=== PATIENT | male | born 1960 | race Hispanic/Latino ===

== ENCOUNTER 2016-08-24 12:18 | Inpatient (IN) | payer MEDICAID ==
[2016-08-24 12:18] VITALS: BMI 29.1
[2016-08-24] MEDS ORDERED: ceFAZolin 1 GM in Sodium Chloride 0.9% 100 ML IVPB ONE (13:31)
[2016-08-24] MEDS ORDERED: Sodium Chloride 0.9% 1,000 ML IV STA (13:31)
--- NOTE | 2016-08-24 13:43 | ED PDOC ---
Lower Extremity Pain/Injury Time Seen by Provider: 08/24/16 12:23 Chief Complaint (Nursing): Lower Extremity Problem/Injury History Per: Patient (states that since yesterday he has been some pain and discomfort on the bottom of this left foot. This morning he noticed redness, swelling on his left leg that has extended proximally) History/Exam Limitations: no limitations Onset/Duration Of Symptoms: Sudden Onset Current Symptoms Are (Timing): Still Present Severity: Moderate Past Medical History Reviewed: Historical Data, Nursing Documentation, Vital Signs Vital Signs: Last Vital Signs Temp 100 F H 08/24/16 12:45 Pulse 112 H 08/24/16 12:45 Resp 18 08/24/16 12:45 BP 125/72 08/24/16 12:45 Pulse Ox 100 08/24/16 12:45 - Surgical History Surgical History: No Surg Hx - Family History Family History: States: Unknown Family Hx - Living Arrangements Living Arrangements: Alone - Immunization History Hx Tetanus Toxoid Vaccination: No Hx Influenza Vaccination: No Hx Pneumococcal Vaccination: No - Home Medications Home Medications: Ambulatory Orders Medication Instructions Recorded No Known Home Med 08/24/16 - Allergies Allergies/Adverse Reactions: Allergies Allergy/AdvReac Type Severity Reaction Status Date / Time No Known Allergies Allergy Verified 06/03/16 15:23 Review of Systems ROS Statement: Except As Marked, All Systems Reviewed And Found Negative Constitutional: Positive for: Fever, Chills Skin: Positive for: Other (redness and swelling of the left calf). Negative for : Jaundice Neurological: Negative for: Weakness Physical Exam - Reviewed Nursing Documentation Reviewed: Yes Vital Signs Reviewed: Yes - Physical Exam Appears: Positive for: Well, Non-toxic, No Acute Distress Head Exam: Positive for: ATRAUMATIC, NORMAL INSPECTION, NORMOCEPHALIC Skin: Positive for: Normal Color, Warm, DRY Eye Exam: Positive for: EOMI, Normal appearance, PERRL ENT: Positive for: Normal ENT Inspection Neck: Positive for: Normal, Painless ROM Cardiovascular/Chest: Positive for: Regular Rate, Rhythm Respiratory: Positive for: CNT, Normal Breath Sounds Gastrointestinal/Abdominal: Positive for: Normal Exam, Bowel Sounds, Soft Back: Positive for: Normal Inspection Extremity: Positive for: Normal ROM, Tenderness (tenderness to touch in the areas of redness), Swelling. Negative for: Calf Tenderness (Sheree's negative), Deformity Neurologic/Psych: Positive for: Alert, Oriented - Laboratory Results Result Diagrams: 08/24/16 13:15 08/24/16 13:15 - ECG O2 Sat by Pulse Oximetry: 100 Medical Decision Making Medical Decision Making: labs reviewed. WBC 14K with left shift. Remains uncomfortable and tachycardic. Agrees to admission. case d/w Dr. Alexander for admission to medical service. Dr. Alexander is covering for Dr. Moreau. Podiatry consult as requested. Disposition - Clinical Impression Clinical Impression: Cellulitis of left lower leg - Patient ED Disposition Is Patient to be Admitted: Yes Doctor Will See Patient In The: Hospital - Disposition Disposition: Transfer of Care Disposition Time: 15:10 Condition: GUARDED - Pt Status Changed To: Hospital Disposition Of: Observation - POA Present On Arrival: None
--- NOTE | 2016-08-24 13:51 | RAD ---
HISTORY: fever COMPARISON: No prior. FINDINGS: LUNGS: Shallow lung volumes. No consolidations seen. PLEURA: No significant pleural effusion identified, no pneumothorax apparent. CARDIOVASCULAR: Probable mild cardiomegaly. OSSEOUS STRUCTURES: Thoracic mild spondylosis VISUALIZED UPPER ABDOMEN: Normal. OTHER FINDINGS: None. IMPRESSION: No consolidation to suggest infiltrate. No pleural effusion
[2016-08-24 13:56] LABS: VENOUS BLOOD GAS PCO2 53 mmHg (40-60); VENOUS BLOOD PH 7.37 (7.32-7.43)
[2016-08-24 14:01] LABS: BASO % 0.3 % (0.0-2.0); HEMATOCRIT 43.1 % (35.0-51.0); LYMPH # 0.4 K/uL (1.0-4.3); LYMPH % 2.8 % (20.0-40.0); MEAN CELL VOLUME 82.7 fl (80.0-94.0); MEAN CORPUSCULAR HEMOGLOBIN 26.9 pg (27.0-31.0); MEAN CORPUSCULAR HGB CONC 32.5 g/dL (33.0-37.0); MEAN PLATELET VOLUME 8.8 fl (7.2-11.7); MONO # 0.7 K/uL (0.0-0.8); MONO % 5.3 % (0.0-10.0); NEUT # 12.6 K/uL (1.8-7.0); NEUT % 91.6 % (50.0-75.0); NRBC % 0.1 % (0.0-0.0); PLATELET COUNT 163 K/uL (130-400); RED CELL DISTRIBUTION WIDTH 13.6 % (11.5-14.5); WHITE BLOOD COUNT 13.7 K/uL (4.8-10.8)
[2016-08-24 14:08] LABS: ALB/GLOB RATIO 1.4 (1.0-2.1); ALKALINE PHOSPHATASE 64 U/L (38-126); ALT/SGPT 46 U/L (21-72); AST/SGOT 27 U/L (17-59); BILIRUBIN,TOTAL 0.8 mg/dl (0.2-1.3); BLOOD UREA NITROGEN 17 mg/dl (9-20); CALCIUM 9.2 mg/dL (8.4-10.2); CARBON DIOXIDE 27 mmol/L (22-30); CHLORIDE 102 mmol/L (98-107); GFR AFRICAN-AMERICAN > 60; GLUCOSE,RANDOM 107 mg/dL (75-110); POTASSIUM 4.1 MMOL/L (3.6-5.0); SODIUM 140 mmol/l (132-148)
[2016-08-24 14:44] LABS: BASOPHIL 1 % (0-2); NEUTROPHIL 86 % (42-75); REACTIVE LYMPHOCYTES 1 % (0-0); TOTAL CELLS COUNTED 100
--- NOTE | 2016-08-24 14:45 | US ---
Left lower extremity ultrasound. Indication: left lower leg swelling Technique: Duplex ultrasound evaluation of the left lower extremity Comparison: None available Findings: There is normal flow, compressibility, and augmentation of the left common femoral, femoral, and popliteal veins. No evidence of thrombus involving the left posterior tibial veins. Left inguinal lymph node measures approximately 1 cm in short axis, nonspecific. Impression: No evidence of deep venous thrombosis in the left lower extremity.
--- NOTE | 2016-08-24 17:54 | CP.PCM.CON ---
History of Present Illness - History of Present Illness History of Present Illness: PODIATRY CONSULT NOTE FOR DR. MARRUFO: This is a 55 yo undomiciled male patient w/ unremarkable pmh who presents to the ED today with chief complaint of pain and redness to his left foot/leg. Pt says that yesterday and today he noticed that the redness to the leg has become wore, admits to fever and chills today. Says he has a history of cellulilits to this leg several times in the past. Says he has a history of athletes foot and has used antifungal creams in the past. Denies seeing any open wounds, denies any recent illness. Denies n,v,sob or cp. Denies any other pedal complaints. Pt says he resides at [facility]. Past Patient History - Infectious Disease Hx of Infectious Diseases: None - Past Social History Smoking Status: Never Smoked - MUSCULOSKELETAL/RHEUMATOLOGICAL Other/Comment: cellulitis - PSYCHIATRIC Hx Substance Use: Yes - SURGICAL HISTORY Hx Surgeries: Yes Hx Herniorrhaphy: Yes Hx Orthopedic Surgery: Yes (knee) - ANESTHESIA Hx Anesthesia: Yes Hx Anesthesia Reactions: No Meds Allergies/Adverse Reactions: Allergies Allergy/AdvReac Type Severity Reaction Status Date / Time No Known Allergies Allergy Verified 08/24/16 20:06 Physical Exam - Constitutional Appears: Non-toxic, No Acute Distress - Extremities Exam Additional comments: LLE focused exam: VASC- DP/PT pulses palpable, TG runs warm to warm with increased calor noted to medial aspect of leg from ankle extending proximally, moderate non-pitting edema noted to posterior-medial leg DERM- blancing ertythema noted to to distal aspect of leg from medial aspect of ankle extending proximally to calf, no fluctuance, no open wounds, no malodor, diffuse scaling noted to plantar aspect of foot NEURO- grossly intact ORTHO-tenderness on palp of medial aspect of leg, pedal muscle strength 5/5 in all directions - Neurological Exam Neurological exam: Alert, CN II-XII Intact, Normal Gait - Psychiatric Exam Psychiatric exam: Normal Affect, Normal Mood Results - Vital Signs Recent Vital Signs: Last Vital Signs Temp 99.0 F 08/24/16 17:30 Pulse 103 H 08/24/16 17:30 Resp 20 08/24/16 17:30 BP 123/73 08/24/16 17:30 Pulse Ox 96 08/24/16 17:30 - Labs Result Diagrams: 08/24/16 13:15 08/24/16 13:15 Assessment & Plan - Assessment and Plan (Free Text) Assessment: 55 yo male patient with 1) cellulitis of left lower extremity, 2) tinea pedis of left foot Plan: Pt S&E in ED Plan discussed with attending Dr. Marrufo Chart labs and vitals reviewed: febrile 100.1, WBC 13.7 w/ left shift, remains tachy Lows ext duplex (left) reviewed: (-) for DVT Cellulitis margins marked Pt to be admitted for obsv under Dr. Alexander service f/u ID recs, c/w IV abx per ID Podiatry will continue to follow while he remains in house
[2016-08-24 20:24] LABS: RBC URINE 5 /hpf (0-3); URINE BACTERIA OCC (<OCC); URINE BILIRUBIN NEGATIVE (NEGATIVE); URINE BLOOD MODERATE (NEGATIVE); URINE COLOR YELLOW (YELLOW); URINE GLUCOSE (UA) NEG (Normal); URINE KETONE NEGATIVE (NEGATIVE); URINE LEUKOCYTE ESTERASE NEG Leu/uL (Negative); URINE PROTEIN 100 mg/dL (NEGATIVE); URINE UROBILINOGEN 0.2-1.0 mg/dL (0.2-1.0); WBC URINE 1 /hpf (0-5)
[2016-08-24] MEDS ORDERED: Piperacillin/Tazobact 3.375 GM in Sodium Chloride 0.9% 100 ML IVPB SCH (21:16)
[2016-08-25] MEDS: Piperacillin/Tazobact 3.375 GM in Sodium Chloride 0.9% 100 ML IVPB SCH ×3 (00:44→16:04)
--- NOTE | 2016-08-25 05:45 | CP.PCM.PN ---
Subjective - Date & Time of Evaluation Date of Evaluation: 08/25/16 Time of Evaluation: 06:44 - Subjective Subjective: 55 year old undomiciled M patient seen and evaluated at bedside. Patient complains of persistent pain, but admits that the pain has decreased since yesterday. Patient admits to chills but denies N/V/F/D/SOB. No other pedal complaints at this time. Objective - Vital Signs/Intake and Output Vital Signs (last 24 hours): Temp Pulse Resp BP Pulse Ox 98.4 F 91 H 19 112/68 96 08/25/16 00:16 08/25/16 00:16 08/25/16 00:16 08/25/16 00:16 08/25/16 00:16 - Medications Medications: Current Medications Acetaminophen (Tylenol 325mg Tab) 650 mg PO Q4 PRN PRN Reason: Fever >100.4 F Last Admin: 08/24/16 21:28 Dose: 650 mg Acetaminophen (Tylenol 325mg Tab) 650 mg PO Q4 PRN PRN Reason: Pain, moderate (4-7) Enoxaparin Sodium (Lovenox) 40 mg SC DAILY RAHEEM PRN Reason: Protocol Vancomycin HCl 1 gm/ Sodium (Chloride) 250 mls @ 166.667 mls/hr IVPB DAILY@ 2100 RAHEEM Piperacillin Sod/Tazobactam (Sod 3.375 gm/ Sodium Chloride) 100 mls @ 100 mls/ hr IVPB Q8@0000,0800,1600 RAHEEM Last Admin: 08/25/16 00:44 Dose: Not Given - Constitutional Appears: Well, Non-toxic, No Acute Distress - Extremities Exam Additional comments: LLE Focucsed Exam: Vasc: DP and PT pulses palpable. TG warm to hot with increased calor noted to medial and lateral lower 1/3 of leg extending proximally. Moderate nonpitting edema noted to lower 1/3. Neuro: Gross sensation intact. Derm: Blanching erythema noted to lower 1/3 of leg extending from medial aspect of ankle to proximal lateral midcalf. No fluctuance, no open open wounds, malodor. Diffuse scaling noted to plantar foot. Ortho: Mild tenderness to palpation noted to lower 1/3. Muscle strength 5/5 in all muscle groups. - Neurological Exam Neurological Exam: Alert, Awake, Oriented x3 - Psychiatric Exam Psychiatric exam: Normal Affect, Normal Mood Assessment and Plan - Assessment and Plan (Free Text) Assessment: 55 y/o male patient with 1) cellulitis of left lower extremity 2) tinea pedis left foot Plan: Patient seen and evaluated at bedside Discussed with attending Dr. Marrufo Chart, labs, vitals reviewed: tmax 103.1 overnight (afebrile currently), wbc trending down Awaiting ID recommendations, c/w antibiotics per ID Podiatry will continue to follow while he remains in house
[2016-08-25 07:01] LABS: BASO % 0.2 % (0.0-2.0); EOS % 0.1 % (0.0-4.0); HEMATOCRIT 42.3 % (35.0-51.0); LYMPH # 0.6 K/uL (1.0-4.3); LYMPH % 5.7 % (20.0-40.0); MEAN CELL VOLUME 82.4 fl (80.0-94.0); MEAN CORPUSCULAR HEMOGLOBIN 27.3 pg (27.0-31.0); MEAN CORPUSCULAR HGB CONC 33.1 g/dL (33.0-37.0); MEAN PLATELET VOLUME 8.9 fl (7.2-11.7); MONO # 0.6 K/uL (0.0-0.8); MONO % 5.2 % (0.0-10.0); NEUT # 9.9 K/uL (1.8-7.0); NEUT % 88.8 % (50.0-75.0); RED CELL DISTRIBUTION WIDTH 13.4 % (11.5-14.5); WHITE BLOOD COUNT 11.2 K/uL (4.8-10.8)
[2016-08-25 07:06] LABS: ALB/GLOB RATIO 1.3 (1.0-2.1); ALKALINE PHOSPHATASE 50 U/L (38-126); ALT/SGPT 48 U/L (21-72); AST/SGOT 49 U/L (17-59); BILIRUBIN,TOTAL 0.9 mg/dl (0.2-1.3); BLOOD UREA NITROGEN 15 mg/dl (9-20); CALCIUM 8.3 mg/dL (8.4-10.2); CARBON DIOXIDE 23 mmol/L (22-30); CHLORIDE 105 mmol/L (98-107); GFR AFRICAN-AMERICAN > 60; GLUCOSE,RANDOM 105 mg/dL (75-110); POTASSIUM 3.9 MMOL/L (3.6-5.0); SODIUM 137 mmol/l (132-148); TOTAL PROTEIN 6.3 G/DL (6.3-8.2)
[2016-08-25 07:36] LABS: THYROID STIMULATING HORMONE 0.49 mIU/ML (0.46-4.68)
[2016-08-25] MEDS: Enoxaparin 40 mg Syringe SC SCH (09:50)
--- NOTE | 2016-08-25 12:12 | CP.PCM.HP ---
History of Present Illness - History of Present Illness History of Present Illness: Patient seen and examined at bedside with attending 55M p/w new onset redness, swelling, and pain at LLE. He denies any trauma, insect bites/stings, but reports that he has been experiencing chills. Otherwise he denies any SOB, chest pain, N/V, abdominal pain, diarrhea, dysuria. PMH: Denies PSH: Hernia Repair Present on Admission - Present on Admission Any Indicators Present on Admission: No Review of Systems - Constitutional Constitutional: Chills - Integumentary Integumentary: Erythema (LLE), Skin Pain (LLE) Past Patient History - Infectious Disease Hx of Infectious Diseases: None - Past Medical History & Family History Past Medical History?: Yes - Past Social History Smoking Status: Never Smoked - CARDIAC Hx Cardiac Disorders: No - PULMONARY Hx Respiratory Disorders: No - NEUROLOGICAL Hx Neurological Disorder: No - HEENT Hx HEENT Problems: No - RENAL Hx Chronic Kidney Disease: No - ENDOCRINE/METABOLIC Hx Endocrine Disorders: No - HEMATOLOGICAL/ONCOLOGICAL Hx Blood Disorders: No - INTEGUMENTARY Hx Dermatological Problems: No - MUSCULOSKELETAL/RHEUMATOLOGICAL Other/Comment: cellulitis - GASTROINTESTINAL Hx Gastrointestinal Disorders: No - GENITOURINARY/GYNECOLOGICAL Hx Genitourinary Disorders: No - PSYCHIATRIC Hx Substance Use: Yes - SURGICAL HISTORY Hx Surgeries: Yes Hx Herniorrhaphy: Yes Hx Orthopedic Surgery: Yes (knee) - ANESTHESIA Hx Anesthesia: Yes Hx Anesthesia Reactions: No Meds Home Medications: Home Medication List Medication Instructions Recorded Confirmed Type Clindamycin [Cleocin] 300 mg PO Q8 #21 cap 08/26/16 Rx Lactobacillus Acidophilus [Bacid 1 cap PO DAILY #14 cap 08/26/16 Rx Acidophilus] Allergies/Adverse Reactions: Allergies Allergy/AdvReac Type Severity Reaction Status Date / Time No Known Allergies Allergy Verified 08/24/16 20:06 Physical Exam - Constitutional Appears: Well, Non-toxic, No Acute Distress - Head Exam Head Exam: ATRAUMATIC, NORMAL INSPECTION - Eye Exam Eye Exam: EOMI, PERRL - ENT Exam ENT Exam: Mucous Membranes Moist, Normal Exam - Neck Exam Neck exam: Positive for: Full Rom, Normal Inspection - Respiratory Exam Respiratory Exam: Clear to Auscultation Bilateral, NORMAL BREATHING PATTERN. absent: Rales, Wheezes - Cardiovascular Exam Cardiovascular Exam: REGULAR RHYTHM. absent: JVD - GI/Abdominal Exam GI & Abdominal Exam: Normal Bowel Sounds, Soft. absent: Tenderness - Extremities Exam Extremities exam: Positive for: calf tenderness (LEFT), full ROM, normal capillary refill, tenderness (LLE marlene posterior), pedal pulses present. Negative for: pedal edema - Expanded Lower Extremities Exam Left Lower Leg Exam: erythema (outlined with marker), full ROM, swelling (mild), tenderness. absent: crepitus Results - Vital Signs Recent Vital Signs: Last Vital Signs Temp 37.2 C 08/25/16 08:21 Pulse 92 H 08/25/16 08:21 Resp 20 08/25/16 08:21 BP 142/70 08/25/16 08:21 Pulse Ox 97 08/25/16 08:21 - Labs Result Diagrams: 08/26/16 14:42 08/25/16 05:40 Labs: Laboratory Results - last 24 hr 08/24/16 08/25/16 08/25/16 20:00 05:40 05:40 WBC 11.2 H RBC 5.13 Hgb 14.0 Hct 42.3 MCV 82.4 MCH 27.3 MCHC 33.1 RDW 13.4 Plt Count 135 MPV 8.9 Neut % (Auto) 88.8 H Lymph % (Auto) 5.7 L [place] % (Auto) 5.2 Eos % (Auto) 0.1 Baso % (Auto) 0.2 Neut # 9.9 H Lymph # 0.6 L [place] # 0.6 Eos # 0.0 Baso # 0.0 Sodium 137 Potassium 3.9 Chloride 105 Carbon Dioxide 23 Anion Gap 13 BUN 15 Creatinine 1.0 Est GFR ( Amer) > 60 Est GFR (Non-Af Amer) > 60 Random Glucose 105 Calcium 8.3 L Total Bilirubin 0.9 AST 49 ALT 48 Alkaline Phosphatase 50 Total Protein 6.3 Albumin 3.6 Globulin 2.8 Albumin/Globulin Ratio 1.3 Vitamin B12 475 TSH 3rd Generation 0.49 Urine Color Yellow Urine Clarity Slighty-cloudy Urine pH 5.0 Ur Specific [place] 1.026 Urine Protein 100 Urine Glucose (UA) Neg Urine Ketones Negative Urine Blood Moderate Urine Nitrate Negative Urine Bilirubin Negative Urine Urobilinogen 0.2-1.0 Ur Leukocyte Esterase Neg Urine RBC (Auto) 5 H Urine Microscopic WBC 1 Ur Squamous Epith Cells < 1 Urine Bacteria Occ H Assessment & Plan (1) Cellulitis of left lower leg Assessment and Plan: Acute onset over 2 days, venous duplex negative for DVT. - MRI of LLE - Empiric Vancomycin - Labs - Monitor VS Status: Acute (2) DVT prophylaxis Assessment and Plan: Lovenox 40mg, SC, Daily Status: Acute
--- NOTE | 2016-08-25 14:32 | CP.PCM.CON ---
History of Present Illness - History of Present Illness History of Present Illness: 55 yo male admitted with fever , leukocytosis and tachycardia for cellulitis left leg started 2-3 days [employer] with chills has had similar events 5 x in past usually same leg PMH denies SH lives in [facility] FH- n/c NKDA Review of Systems - Constitutional Constitutional: Chills, Malaise - EENT Eyes: absent: As Per HPI, Blind Spots, Blurred Vision, Change in Vision, Decreased Night Vision, Diplopia, Discharge, Dry Eye, Exophthalmos, Floaters, Irritation, Itchy Eyes, Loss of Peripheral Vision, Pain, Photophobia, Requires Corrective Lenses, Sees Flashes, Spots in Vision, Tunnel Vision, Other Visual Disturbances, Loss of Vision, Other Ears: absent: As Per HPI, Decreased Hearing, Ear Discharge, Ear Pain, Tinnitus, Abnormal Hearing, Disequilibrium, Dizziness, Other Nose/Mouth/Throat: absent: As Per HPI, Epistaxis, Nasal Congestion, Nasal Discharge, Nasal Obstruction, Nasal Trauma, Nose Pain, Post Nasal Drip, Sinus Pain, Sinus Pressure, Bleeding Gums, Change in Voice, Dental Pain, Dry Mouth, Dysphagia, Halitosis, Hoarsness, Lip Swelling, Mouth Lesions, Mouth Pain, Odynophagia, Sore Throat, Throat Swelling, Tongue Swelling, Facial Pain, Neck Pain, Neck Mass, Other - Cardiovascular Cardiovascular: absent: As Per HPI, Acrocyanosis, Chest Pain, Chest Pain at Rest , Chest Pain with Activity, Claudication, Diaphoresis, Dyspnea, Dyspnea on Exertion, Edema, Irregular Heart Rhythm, Pain Radiating to Arm/Neck/Jaw, Leg Edema, Leg Ulcers, Lightheadedness, Orthopnea, Palpitations, Paroxysmal Nocturnal Dyspnea, Pedal Edema, Radiating Pain, Rapid Heart Rate, Slow Heart Rate, Syncope, Other - Respiratory Respiratory: absent: As Per HPI, Cough, Dyspnea, Hemoptysis, Dyspnea on Exertion , Wheezing, Snoring, Stridor, Pain on Inspiration, Chest Congestion, Excessive Mucous Production, Change in Mucous Color, Pain with Coughing, Other - Gastrointestinal Gastrointestinal: absent: As Per HPI, Abdominal Pain, Belching, Bloating, Change in Bowel Habits, Change in Stool Character, Coffee Ground Emesis, Constipation, Cramping, Diarrhea, Dyspepsia, Dysphagia, Early Satiety, Excessive Flatus, Fecal Incontinence, Heartburn, Hematemesis, Hematochezia, Loose Stools, Melena, Nausea, Odynophagia, Temesmus, Vomiting, Other - Genitourinary Genitourinary: absent: As Per HPI, Change in Urinary Stream, Difficulty Urinating, Dysuria, Flank Pain, Hematuria, Pyuria, Nocturia, Urinary Incontinence, Urinary Frequency, Urinary Hesitance, Urinary Urgency, Voiding Freq/Small Amts, Freq UTI, Hx Renal/Bladder Calculi, Hx /Renal Surgery, Bladder Distension, Other - Musculoskeletal Musculoskeletal: As Per HPI - Integumentary Integumentary: As Per HPI, Skin Pain - Neurological Neurological: absent: As Per HPI, Abnormal Gait, Abnormal Hearing, Abnormal Movements, Abnormal Speech, Behavioral Changes, Burning Sensations, Confusion, Convulsions, Disequilibrium, Dizziness, Numbness, Focal Weakness, Frequent Falls , Headaches, Lack of Coordination, Loss of Vision, Memory Loss, Paresthesias, Radicular Pain, Restless Legs, Sensory Deficit, Syncope, Tingling, Tremor, Vertigo, Weakness, Other Visual Disturbances, Other - Psychiatric Psychiatric: absent: As Per HPI, Abnormal Sleep Pattern, Anhedonia, Anxiety, Auditory Hallucinations, Behavioral Changes, Change in Appetite, Change in Libido, Confusion, Depression, Difficulty Concentrating, Hallucinations, Homicidal Ideation, Hopelessness, Irritability, Memory Loss, Mood Swings, Panic Attacks, Paranoia, Suicidal Ideation, Visual Hallucinations, Tactile Hallucinations, Other - Endocrine Endocrine: absent: As Per HPI, Change in Body Appearance, Change in Libido, Cold Intolorance, Deepening of Voice, Excessive Sweating, Fatigue, Flushing, Heat Intolorance, Increase in Ring/Shoe/Hat Size, Palpitations, Polydipsia, Polyphagia, Polyuria, Other - Hematologic/Lymphatic Hematologic: absent: As Per HPI, Easy Bleeding, Easy Bruising, Lymphadenopathy, Other Past Patient History - Infectious Disease Hx of Infectious Diseases: None - Past Medical History & Family History Past Medical History?: Yes - Past Social History Smoking Status: Never Smoked - CARDIAC Hx Cardiac Disorders: No - PULMONARY Hx Respiratory Disorders: No - NEUROLOGICAL Hx Neurological Disorder: No - HEENT Hx HEENT Problems: No - RENAL Hx Chronic Kidney Disease: No - ENDOCRINE/METABOLIC Hx Endocrine Disorders: No - HEMATOLOGICAL/ONCOLOGICAL Hx Blood Disorders: No - INTEGUMENTARY Hx Dermatological Problems: No - MUSCULOSKELETAL/RHEUMATOLOGICAL Other/Comment: cellulitis - GASTROINTESTINAL Hx Gastrointestinal Disorders: No - GENITOURINARY/GYNECOLOGICAL Hx Genitourinary Disorders: No - PSYCHIATRIC Hx Substance Use: Yes - SURGICAL HISTORY Hx Surgeries: Yes Hx Herniorrhaphy: Yes Hx Orthopedic Surgery: Yes (knee) - ANESTHESIA Hx Anesthesia: Yes Hx Anesthesia Reactions: No Meds Allergies/Adverse Reactions: Allergies Allergy/AdvReac Type Severity Reaction Status Date / Time No Known Allergies Allergy Verified 08/24/16 20:06 - Medications Medications: Current Medications Acetaminophen (Tylenol 325mg Tab) 650 mg PO Q4 PRN PRN Reason: Fever >100.4 F Last Admin: 08/24/16 21:28 Dose: 650 mg Acetaminophen (Tylenol 325mg Tab) 650 mg PO Q4 PRN PRN Reason: Pain, moderate (4-7) Enoxaparin Sodium (Lovenox) 40 mg SC DAILY RAHEEM PRN Reason: Protocol Last Admin: 08/25/16 09:50 Dose: 40 mg Vancomycin HCl 1 gm/ Sodium (Chloride) 250 mls @ 166.667 mls/hr IVPB DAILY@ 2100 RAHEEM Piperacillin Sod/Tazobactam (Sod 3.375 gm/ Sodium Chloride) 100 mls @ 100 mls/ hr IVPB Q8@0000,0800,1600 RAHEEM Last Admin: 08/25/16 00:44 Dose: Not Given Physical Exam - Constitutional Appears: Non-toxic, Chronically Ill - Head Exam Head Exam: ATRAUMATIC, NORMAL INSPECTION, NORMOCEPHALIC - Eye Exam Eye Exam: PERRL. absent: Scleral icterus - ENT Exam ENT Exam: Mucous Membranes Dry, Normal External Ear Exam - Neck Exam Neck exam: Negative for: Lymphadenopathy, Thyromegaly - Respiratory Exam Respiratory Exam: Decreased Breath Sounds, Clear to Auscultation Bilateral - Cardiovascular Exam Cardiovascular Exam: REGULAR RHYTHM, +S1, +S2 - GI/Abdominal Exam GI & Abdominal Exam: Diminished Bowel Sounds, Soft. absent: Tenderness - Rectal Exam Rectal Exam: Deferred - Exam Exam: NORMAL INSPECTION - Extremities Exam Extremities exam: Positive for: pedal pulses present. Negative for: calf tenderness, pedal edema, tenderness Additional comments: LLE focused exam: VASC- DP/PT pulses palpable, TG runs warm to warm with increased calor noted to medial aspect of leg from ankle extending proximally, moderate non-pitting edema noted to posterior-medial leg DERM- blancing ertythema noted to to distal aspect of leg from medial aspect of ankle extending proximally to calf, no fluctuance, no open wounds, no malodor, diffuse scaling noted to plantar aspect of foot NEURO- grossly intact ORTHO-tenderness on palp of medial aspect of leg, pedal muscle strength 5/5 in all directions - Back Exam Back exam: absent: CVA tenderness (L), CVA tenderness (R) - Neurological Exam Neurological exam: Alert, CN II-XII Intact, Oriented x3, Reflexes Normal - Psychiatric Exam Psychiatric exam: Normal Mood - Skin Skin Exam: Dry, Erythema Results - Vital Signs Recent Vital Signs: Last Vital Signs Temp 98.9 F 08/25/16 08:21 Pulse 92 H 08/25/16 08:21 Resp 20 08/25/16 08:21 BP 142/70 08/25/16 08:21 Pulse Ox 97 08/25/16 08:21 - Labs Result Diagrams: 08/25/16 05:40 08/25/16 05:40 Labs: Laboratory Results - last 24 hr 08/24/16 08/25/16 08/25/16 20:00 05:40 05:40 WBC 11.2 H RBC 5.13 Hgb 14.0 Hct 42.3 MCV 82.4 MCH 27.3 MCHC 33.1 RDW 13.4 Plt Count 135 MPV 8.9 Neut % (Auto) 88.8 H Lymph % (Auto) 5.7 L [place] % (Auto) 5.2 Eos % (Auto) 0.1 Baso % (Auto) 0.2 Neut # 9.9 H Lymph # 0.6 L [place] # 0.6 Eos # 0.0 Baso # 0.0 Sodium 137 Potassium 3.9 Chloride 105 Carbon Dioxide 23 Anion Gap 13 BUN 15 Creatinine 1.0 Est GFR ( Amer) > 60 Est GFR (Non-Af Amer) > 60 Random Glucose 105 Calcium 8.3 L Total Bilirubin 0.9 AST 49 ALT 48 Alkaline Phosphatase 50 Total Protein 6.3 Albumin 3.6 Globulin 2.8 Albumin/Globulin Ratio 1.3 Vitamin B12 475 TSH 3rd Generation 0.49 Urine Color Yellow Urine Clarity Slighty-cloudy Urine pH 5.0 Ur Specific [place] 1.026 Urine Protein 100 Urine Glucose (UA) Neg Urine Ketones Negative Urine Blood Moderate Urine Nitrate Negative Urine Bilirubin Negative Urine Urobilinogen 0.2-1.0 Ur Leukocyte Esterase Neg Urine RBC (Auto) 5 H Urine Microscopic WBC 1 Ur Squamous Epith Cells < 1 Urine Bacteria Occ H Assessment & Plan (1) Cellulitis of left lower leg Status: Acute (2) Acute bronchitis Status: Acute (3) Depression Status: Acute (4) Tinea pedis Status: Acute - Assessment and Plan (Free Text) Assessment: cellulitis- likely secondary to strep/staph gram neg component unlikely consider de-escalation to clinda IV then transitionm to PO consider vascular eval
--- NOTE | 2016-08-25 20:07 | MRI ---
EXAM: MR Left Lower Extremity Without Intravenous Contrast, Tibia and Fibula CLINICAL HISTORY: 55 years old, male; Signs and symptoms; Cellulitis; Lower leg; Left; Additional info: Cellulitis, R/O om TECHNIQUE: Multiplanar magnetic resonance images of the left tibia and fibula without intravenous contrast. EXAM DATE/TIME: 08/25/2016 10:13 AM COMPARISON: No relevant prior studies available. FINDINGS: LIMITATIONS: Mild streak/motion artifact. BONES/JOINTS: No significant marrow signal abnormality is seen. No findings to suggest osteomyelitis. SOFT TISSUES: Diffuse subcutaneous edema, greatest in the lower calf soft tissues, and extending into the upper, medial calf soft tissues. There is no definite focal, measurable fluid collection to suggest a drainable soft tissue abscess. IMPRESSION: - Diffuse subcutaneous edema, greatest in the lower calf. Findings are presumably secondary to cellulitis. - No evidence of osteomyelitis or of a focal, drainable soft tissue fluid collection. - See above for remaining findings.
[2016-08-26] MEDS: Piperacillin/Tazobact 3.375 GM in Sodium Chloride 0.9% 100 ML IVPB SCH ×2 (00:45→08:36)
[2016-08-26] MEDS: Enoxaparin 40 mg Syringe SC SCH (08:36)
[2016-08-26 09:36] VITALS: RESP 18
--- NOTE | 2016-08-26 10:16 | PQF GENQUE ---
This form is a permanent part of the medical record 08/26/16 Dr. Law, Please clarify if the diagnosis in your consult of Acute Bronchitis is a History only or current admission.See Physician response below. Clarification of your documentation is requested to better reflect the severity of illness and intensity of treatment of your patient. PHYSICIAN'S RESPONSE [ ] Acute bronchitis history only [ ] Acute bronchitis current admission [ ] Other explanation please clarify: Based on your medical judgment of the clinical indicators outlined above please clarify the following: [] Practitioner response [] If unable to determine, please check the box, sign and date. Present On Admission (POA) Indicator: [] Present at the time of admission [] Not present at the time of admission [] Clinically Undetermined In responding to this query, please exercise your independent professional judgment. The fact that a question is asked does not imply that any particular answer is desired or expected. Thank you for your clarification on this documentation. If you have any questions please call:extension [phone] Medical Records Dept * Thank you, Martha Diane RN CDMP MTDD
--- NOTE | 2016-08-26 10:28 | CP.PCM.DIS ---
Provider - Provider Date of Admission: 08/25/16 15:00 Attending physician: Romeo Alexander MD Time Spent in preparation of Discharge (in minutes): 45 Diagnosis - Discharge Diagnosis (1) Cellulitis of left lower leg Status: Acute Comment: Stable and d/c with Cleocin. Hospital Course - Lab Results Lab Results: Most Recent Lab Values WBC 11.2 K/uL (4.8-10.8) H 08/25/16 05:40 RBC 5.13 Mil/uL (4.40-5.90) 08/25/16 05:40 Hgb 14.0 g/dL (12.0-18.0) 08/25/16 05:40 Hct 42.3 % (35.0-51.0) 08/25/16 05:40 MCV 82.4 fl (80.0-94.0) 08/25/16 05:40 MCH 27.3 pg (27.0-31.0) 08/25/16 05:40 MCHC 33.1 g/dL (33.0-37.0) 08/25/16 05:40 RDW 13.4 % (11.5-14.5) 08/25/16 05:40 Plt Count 135 K/uL (130-400) 08/25/16 05:40 MPV 8.9 fl (7.2-11.7) 08/25/16 05:40 Neut % (Auto) 88.8 % (50.0-75.0) H 08/25/16 05:40 Lymph % (Auto) 5.7 % (20.0-40.0) L 08/25/16 05:40 [place] % (Auto) 5.2 % (0.0-10.0) 08/25/16 05:40 Eos % (Auto) 0.1 % (0.0-4.0) 08/25/16 05:40 Baso % (Auto) 0.2 % (0.0-2.0) 08/25/16 05:40 Neut # 9.9 K/uL (1.8-7.0) H 08/25/16 05:40 Lymph # 0.6 K/uL (1.0-4.3) L 08/25/16 05:40 [place] # 0.6 K/uL (0.0-0.8) 08/25/16 05:40 Eos # 0.0 K/uL (0.0-0.7) 08/25/16 05:40 Baso # 0.0 K/uL (0.0-0.2) 08/25/16 05:40 Neutrophils % (Manual) 86 % (42-75) H 08/24/16 13:15 Band Neutrophils % 7 % (0-2) H 08/24/16 13:15 Lymphocytes % (Manual) 2 % (20-50) L 08/24/16 13:15 Reactive Lymphs % 1 % (0-0) H 08/24/16 13:15 Monocytes % (Manual) 3 % (0-10) 08/24/16 13:15 Basophils % (Manual) 1 % (0-2) 08/24/16 13:15 Platelet Estimate Normal (NORMAL) 08/24/16 13:15 RBC Morphology Normal (NORMAL) 08/24/16 13:15 pO2 14 mm/Hg (30-55) L 08/24/16 13:50 VBG pH 7.37 (7.32-7.43) 08/24/16 13:50 VBG pCO2 53 mmHg (40-60) 08/24/16 13:50 VBG HCO3 25.8 mmol/L 08/24/16 13:50 VBG Total CO2 32.2 mmol/L (22-28) H 08/24/16 13:50 VBG O2 Sat (Calc) 22.4 % (40-65) L 08/24/16 13:50 VBG Base Excess 4.0 mmol/L (0.0-2.0) H 08/24/16 13:50 VBG Potassium 4.1 mmol/L (3.6-5.2) 08/24/16 13:50 Sodium 137.0 mmol/L (132-148) 08/24/16 13:50 Chloride 103.0 mmol/L (98-107) 08/24/16 13:50 Glucose 107 mg/dL (75-110) 08/24/16 13:50 Lactate 1.7 mmol/L (0.7-2.1) 08/24/16 13:50 FiO2 21.0 % 08/24/16 13:50 Sodium 137 mmol/l (132-148) 08/25/16 05:40 Potassium 3.9 MMOL/L (3.6-5.0) 08/25/16 05:40 Chloride 105 mmol/L (98-107) 08/25/16 05:40 Carbon Dioxide 23 mmol/L (22-30) 08/25/16 05:40 Anion Gap 13 (10-20) 08/25/16 05:40 BUN 15 mg/dl (9-20) 08/25/16 05:40 Creatinine 1.0 mg/dL (0.8-1.5) 08/25/16 05:40 Est GFR ( Amer) > 60 08/25/16 05:40 Est GFR (Non-Af Amer) > 60 08/25/16 05:40 Random Glucose 105 mg/dL (75-110) 08/25/16 05:40 Hemoglobin A1c 5.6 % (4.2-6.5) 08/25/16 15:48 Calcium 8.3 mg/dL (8.4-10.2) L 08/25/16 05:40 Total Bilirubin 0.9 mg/dl (0.2-1.3) 08/25/16 05:40 AST 49 U/L (17-59) 08/25/16 05:40 ALT 48 U/L (21-72) 08/25/16 05:40 Alkaline Phosphatase 50 U/L (38-126) 08/25/16 05:40 Total Protein 6.3 G/DL (6.3-8.2) 08/25/16 05:40 Albumin 3.6 g/dL (3.5-5.0) 08/25/16 05:40 Globulin 2.8 gm/dL (2.2-3.9) 08/25/16 05:40 Albumin/Globulin Ratio 1.3 (1.0-2.1) 08/25/16 05:40 Vitamin B12 475 pg/mL (239-931) 08/25/16 05:40 TSH 3rd Generation 0.49 mIU/ML (0.46-4.68) 08/25/16 05:40 Venous Blood Potassium 4.1 mmol/L (3.6-5.2) 08/24/16 13:50 Urine Color Yellow (YELLOW) 08/24/16 20:00 Urine Clarity Slighty-cloudy (Clear) 08/24/16 20:00 Urine pH 5.0 (5.0-8.0) 08/24/16 20:00 Ur Specific [place] 1.026 (1.003-1.030) 08/24/16 20:00 Urine Protein 100 mg/dL (NEGATIVE) 08/24/16 20:00 Urine Glucose (UA) Neg mg/dL (Normal) 08/24/16 20:00 Urine Ketones Negative mg/dL (NEGATIVE) 08/24/16 20:00 Urine Blood Moderate (NEGATIVE) 08/24/16 20:00 Urine Nitrate Negative (NEGATIVE) 08/24/16 20:00 Urine Bilirubin Negative (NEGATIVE) 08/24/16 20:00 Urine Urobilinogen 0.2-1.0 mg/dL (0.2-1.0) 08/24/16 20:00 Ur Leukocyte Esterase Neg April/uL (Negative) 08/24/16 20:00 Urine RBC (Auto) 5 /hpf (0-3) H 08/24/16 20:00 Urine Microscopic WBC 1 /hpf (0-5) 08/24/16 20:00 Ur Squamous Epith Cells < 1 /hpf (0-5) 08/24/16 20:00 Urine Bacteria Occ (<OCC) H 08/24/16 20:00 Vancomycin Trough < 5.0 ug/mL (5.0-10.0) L 08/26/16 06:05 HIV 1&2 Antibody Screen Negative (NEGATIVE) 08/25/16 15:48 - Hospital Course Hospital Course: Patient seen and examined at bedside with attending. 55M admitted for LLE cellulitis. Venous duplex and MRI were negative for acute pathology other than soft tissue swelling. Dr Law and Podiatry agree with patient being stable for discharge to home on PO antibiotics. Patient tolerating PO, AVSS, and resolving leukocytosis. Discharge Exam - Head Exam Head Exam: ATRAUMATIC, NORMAL INSPECTION, NORMOCEPHALIC - Eye Exam Eye Exam: EOMI, PERRL - ENT Exam ENT Exam: Mucous Membranes Moist - Respiratory Exam Respiratory Exam: NORMAL BREATHING PATTERN. absent: Rales - Cardiovascular Exam Cardiovascular Exam: REGULAR RHYTHM. absent: JVD - GI/Abdominal Exam GI & Abdominal Exam: Normal Bowel Sounds, Soft. absent: Tenderness - Extremities Exam Extremities exam: full ROM, normal capillary refill, pedal pulses present Additional comments: LLE erythema greatly improved - Neurological Exam Neurological exam: Alert, Oriented x3 - Psychiatric Exam Psychiatric exam: Normal Affect, Normal Mood - Skin Skin Exam: Normal Color, Warm Discharge Plan - Discharge Medications Prescriptions: Clindamycin [Cleocin] 300 mg PO Q8 #21 cap Lactobacillus Acidophilus [Bacid Acidophilus] 1 cap PO DAILY #14 cap - Follow Up Plan Condition: GUARDED Disposition: HOME/ ROUTINE Patient education suggested?: Yes Instructions: Cellulitis (DC) Additional Instructions: Complete entire course of antibiotics Referrals: Mathieu Polanco MD [Family Provider] - 1 Week
--- NOTE | 2016-08-26 12:23 | CP.PCM.PN ---
Subjective - Date & Time of Evaluation Date of Evaluation: 08/26/16 Time of Evaluation: 09:00 - Subjective Subjective: discussed on rounds for d/c home follow up in clinic Objective - Vital Signs/Intake and Output Vital Signs (last 24 hours): Temp Pulse Resp BP Pulse Ox 98.7 F 82 18 122/75 93 L 08/26/16 09:00 08/26/16 09:00 08/26/16 09:00 08/26/16 09:00 08/26/16 09:00 - Medications Medications: Current Medications Acetaminophen (Tylenol 325mg Tab) 650 mg PO Q4 PRN PRN Reason: Fever >100.4 F Last Admin: 08/24/16 21:28 Dose: 650 mg Acetaminophen (Tylenol 325mg Tab) 650 mg PO Q4 PRN PRN Reason: Pain, moderate (4-7) Last Admin: 08/25/16 21:37 Dose: 650 mg Clindamycin HCl (Cleocin) 300 mg PO Q8 [facility] Enoxaparin Sodium (Lovenox) 40 mg SC DAILY [facility] PRN Reason: Protocol Last Admin: 08/26/16 08:36 Dose: 40 mg Piperacillin Sod/Tazobactam (Sod 3.375 gm/ Sodium Chloride) 100 mls @ 100 mls/ hr IVPB Q8@0000,0800,1600 [facility] Last Admin: 08/26/16 08:36 Dose: 100 mls/hr - Constitutional Appears: Non-toxic - Head Exam Head Exam: NORMOCEPHALIC - Eye Exam Eye Exam: PERRL. absent: Scleral icterus - ENT Exam ENT Exam: Mucous Membranes Dry - Neck Exam Neck Exam: absent: Lymphadenopathy - Respiratory Exam Respiratory Exam: Decreased Breath Sounds, Clear to Ausculation Bilateral - Cardiovascular Exam Cardiovascular Exam: REGULAR RHYTHM, +S1, +S2 - GI/Abdominal Exam GI & Abdominal Exam: Distended, Soft Assessment and Plan (1) Cellulitis of left lower leg Status: Acute (2) Acute bronchitis Status: Acute (3) Depression Status: Acute (4) Tinea pedis Status: Acute
--- NOTE | 2016-08-26 13:25 | CP.PCM.PN ---
Subjective - Date & Time of Evaluation Date of Evaluation: 08/26/16 Time of Evaluation: 13:00 - Subjective Subjective: 55 year old undomiciled male patient seen and evaluated at bedside. Patient is still complaining of persistent pain to LLE. Patient continues to be febrile overnight but is currently afebrile. Patient denies any N/V/D/C/SOB but is sweating profusely. No other pedal complaints. Objective - Vital Signs/Intake and Output Vital Signs (last 24 hours): Temp Pulse Resp BP Pulse Ox 98.7 F 82 18 122/75 93 L 08/26/16 09:00 08/26/16 09:00 08/26/16 09:00 08/26/16 09:00 08/26/16 09:00 - Medications Medications: Current Medications Acetaminophen (Tylenol 325mg Tab) 650 mg PO Q4 PRN PRN Reason: Fever >100.4 F Last Admin: 08/24/16 21:28 Dose: 650 mg Acetaminophen (Tylenol 325mg Tab) 650 mg PO Q4 PRN PRN Reason: Pain, moderate (4-7) Last Admin: 08/25/16 21:37 Dose: 650 mg Clindamycin HCl (Cleocin) 300 mg PO Q8 [facility] Last Admin: 08/26/16 12:40 Dose: 300 mg Enoxaparin Sodium (Lovenox) 40 mg SC DAILY [facility] PRN Reason: Protocol Last Admin: 08/26/16 08:36 Dose: 40 mg Piperacillin Sod/Tazobactam (Sod 3.375 gm/ Sodium Chloride) 100 mls @ 100 mls/ hr IVPB Q8@0000,0800,1600 [facility] Last Admin: 08/26/16 08:36 Dose: 100 mls/hr - Constitutional Appears: Well, Non-toxic, No Acute Distress - Extremities Exam Additional comments: Focused LLE Exam: Vasc: DP and PT pulses palpable. Skin temperature continues to be warm to hot, but decreased calor noted to erythematous region at lower 1/3 of leg. Non- pitting edema remains to lower 1/3 of leg. Neuro: Gross sensation intact Derm: Blanching erythema noted to lower 1/3 of leg extending from medial aspect of ankle to proximal lateral calf. Erythematous region appears to be resolving. No fluctuance noted. Diffuse scaling noted to plantar foot. Ortho: Mild tenderness to palpation noted to lower 1/3 of leg. Muscle strength 5 /5 in all muscle groups. - Neurological Exam Neurological Exam: Alert, Awake, Oriented x3 - Psychiatric Exam Psychiatric exam: Normal Affect, Normal Mood Assessment and Plan - Assessment and Plan (Free Text) Assessment: 55 year old male patient with 1) cellulitis of left lower extremity 2) tinea pedis Plan: Patient seen with attending Dr. Marrufo and evaluated at bedside Chart, labs, vitals reviewed: Tmax 100.1 overnight (afebrile currently) Per ID recs, patient will be discharged home on PO Clindamycin 300mg q8h Per Dr. Marrufo, recommend repeat CBC prior to discharge to ensure fevers and WBC remain trending down Patient is stable per podiatry Podiatry will continue to follow while in-house
[2016-08-26 14:51] LABS: BASO # 0.1 K/uL (0.0-0.2); BASO % 0.7 % (0.0-2.0); EOS # 0.1 K/uL (0.0-0.7); HEMATOCRIT 40.6 % (35.0-51.0); LYMPH # 1.6 K/uL (1.0-4.3); LYMPH % 18.5 % (20.0-40.0); MEAN CELL VOLUME 83.1 fl (80.0-94.0); MEAN CORPUSCULAR HEMOGLOBIN 27.4 pg (27.0-31.0); MEAN PLATELET VOLUME 9.1 fl (7.2-11.7); MONO # 0.9 K/uL (0.0-0.8); MONO % 10.1 % (0.0-10.0); NEUT # 5.9 K/uL (1.8-7.0); NEUT % 69.7 % (50.0-75.0); NRBC % 0.2 % (0.0-0.0); WHITE BLOOD COUNT 8.5 K/uL (4.8-10.8)
[2016-08-26 16:10] VITALS: BP 114/71; PULSE 79; TEMP 98.4; O2SAT 97
== END 2016-08-26 18:41 | disposition home or self-care (01) | DRG 278 ==
LOC: H.ER 12:18 → H.ERHOLD 15:20 → H.MEDSURG1 22:06 → OBSVTOIN 08-25 15:00
PROVIDERS: ADMIT Internal Medicine; ATTEND Internal Medicine
DX: L03.116 Cellulitis of left lower limb (principal); F32.9 Major depressive disorder, single episode, unspecified; B35.3 Tinea pedis; Z59.0 Homelessness

== ENCOUNTER 2017-02-10 08:05 | Emergency (ER) | payer MEDICAID ==
[2017-02-10 08:10] VITALS: BP 125/79; PULSE 101; TEMP 97; O2SAT 97; BMI 29.9
--- NOTE | 2017-02-10 08:22 | ED PDOC ---
Lower Extremity Pain/Injury Time Seen by Provider: 02/10/17 08:14 Chief Complaint (Nursing): Lower Extremity Problem/Injury History Per: Patient Onset/Duration Of Symptoms: Days (3) Current Symptoms Are (Timing): Still Present Severity: Moderate Pain Scale Rating Of: 3 Additional Complaint(s): Redness and swelling right calf x 3 days assoc with fever and chills. Denies chest pain or SOB Past Medical History Vital Signs: Last Vital Signs Temp 97 F L 02/10/17 08:09 Pulse 101 H 02/10/17 08:09 Resp BP 125/79 02/10/17 08:09 Pulse Ox 97 02/10/17 08:09 - Medical History PMH: Denies: Chronic Kidney Disease Other PMH: Cellulitis - Family History Family History: States: Unknown Family Hx - Immunization History Hx Tetanus Toxoid Vaccination: No Hx Influenza Vaccination: No Hx Pneumococcal Vaccination: No - Home Medications Home Medications: Ambulatory Orders Medication Instructions Recorded Clindamycin [Cleocin] 300 mg PO TID #30 cap 02/10/17 Naproxen [Naprosyn] 500 mg PO Q12H #20 tab 02/10/17 - Allergies Allergies/Adverse Reactions: Allergies Allergy/AdvReac Type Severity Reaction Status Date / Time No Known Allergies Allergy Verified 08/24/16 20:06 Review of Systems ROS Statement: Except As Marked, All Systems Reviewed And Found Negative Constitutional: Positive for: Fever, Chills Cardiovascular: Negative for: Chest Pain Respiratory: Negative for: Shortness of Breath Musculoskeletal: Positive for: Leg Pain Physical Exam - Reviewed Nursing Documentation Reviewed: Yes Vital Signs Reviewed: Yes - Physical Exam Appears: Positive for: Non-toxic, No Acute Distress Head Exam: Positive for: ATRAUMATIC, NORMAL INSPECTION, NORMOCEPHALIC Skin: Positive for: Normal Color, Warm, DRY Eye Exam: Positive for: EOMI, Normal appearance, PERRL ENT: Positive for: Normal ENT Inspection Neck: Positive for: Normal, Painless ROM Cardiovascular/Chest: Positive for: Regular Rate, Rhythm Respiratory: Positive for: CNT, Normal Breath Sounds Gastrointestinal/Abdominal: Positive for: Normal Exam, Bowel Sounds, Soft Back: Positive for: Normal Inspection Extremity: Positive for: Swelling, Other (Erythema predominately ant and laterally right calf. +ve warmth and tenderness) Neurologic/Psych: Positive for: Alert, Oriented - Laboratory Results Result Diagrams: 02/10/17 08:30 02/10/17 08:30 - ECG O2 Sat by Pulse Oximetry: 97 Medical Decision Making Medical Decision Making: D/W Dr. Alexander, no DVT, nl WBC, afewbrile No evidence of sepsis, tolerating PO. Will DC on PO Clinda and f/o in office Disposition - Clinical Impression Clinical Impression: Cellulitis - Patient ED Disposition Is Patient to be Admitted: No Counseled Patient/Family Regarding: Studies Performed, Diagnosis, Need For Followup, Rx Given - Disposition Referrals: Romeo Alexander MD [Staff Provider] - Disposition: Routine/Home Disposition Time: 09:52 Condition: FAIR Prescriptions: Clindamycin [Cleocin] 300 mg PO TID #30 cap Naproxen [Naprosyn] 500 mg PO Q12H #20 tab Instructions: Cellulitis (ED) Forms: [facility] (Indonesian)
[2017-02-10] MEDS ORDERED: Vancomycin 1 GM in Dextrose 5% In Water 250 ML IVPB STA (08:36)
[2017-02-10 08:39] LABS: VENOUS BLOOD GAS BASE EXCESS 6.1 mmol/L (0.0-2.0); VENOUS BLOOD GAS PCO2 51 mmHg (40-60); VENOUS BLOOD PH 7.41 (7.32-7.43)
[2017-02-10 08:42] LABS: BASO % 0.2 % (0.0-2.0); EOS % 0.1 % (0.0-4.0); HEMATOCRIT 42.5 % (35.0-51.0); LYMPH % 13.8 % (20.0-40.0); MEAN CELL VOLUME 85.1 fl (80.0-94.0); MEAN CORPUSCULAR HEMOGLOBIN 27.8 pg (27.0-31.0); MEAN CORPUSCULAR HGB CONC 32.7 g/dL (33.0-37.0); MEAN PLATELET VOLUME 8.1 fl (7.2-11.7); MONO # 0.6 K/uL (0.0-0.8); MONO % 8.4 % (0.0-10.0); NEUT # 5.5 K/uL (1.8-7.0); NEUT % 77.5 % (50.0-75.0); NRBC % 0.1 % (0.0-0.0); RED CELL DISTRIBUTION WIDTH 13.6 % (11.5-14.5); WHITE BLOOD COUNT 7.1 K/uL (4.8-10.8)
[2017-02-10 08:50] LABS: ALB/GLOB RATIO 1.2 (1.0-2.1); ALKALINE PHOSPHATASE 56 U/L (38-126); ALT/SGPT 37 U/L (21-72); AST/SGOT 23 U/L (17-59); BLOOD UREA NITROGEN 22 mg/dl (9-20); CALCIUM 8.9 mg/dL (8.4-10.2); CARBON DIOXIDE 29 mmol/L (22-30); CHLORIDE 101 mmol/L (98-107); GFR AFRICAN-AMERICAN > 60; GLUCOSE,RANDOM 106 mg/dL (75-110); POTASSIUM 3.6 MMOL/L (3.6-5.0); SODIUM 140 mmol/l (132-148); TOTAL PROTEIN 7.4 G/DL (6.3-8.2)
--- NOTE | 2017-02-10 10:47 | US ---
PROCEDURE: Right lower extremity venous duplex Doppler. HISTORY: erythema and swelling COMPARISON: None available. TECHNIQUE: Common femoral, superficial femoral, popliteal and posterior tibial veins were evaluated. Flow was assessed with color Doppler, compressibility, assessment of phasic flow and augmentation response. FINDINGS: COMMON FEMORAL VEIN: Unremarkable. SUPERFICIAL FEMORAL VEIN: Unremarkable. POPLITEAL VEIN: Unremarkable. POSTERIOR TIBIAL VEIN: Unremarkable. OTHER FINDINGS: Mild subcutaneous edema Few small to medium-sized right-sided inguinal lymph nodes are present. IMPRESSION: No evidence of deep venous thrombosis in the right lower extremity. There appears to be some mild on subcutaneous edema
== END 2017-02-10 11:18 | disposition home or self-care (01) ==
LOC: H.ER 08:05
DX: L03.115 Cellulitis of right lower limb (principal)
CPT/HCPCS: 80053; 82803; 85025; 87040; 93971; 96374; 99283; J7060